=== PATIENT | male | born 1975 | race Caucasian/White ===

== ENCOUNTER 2021-05-31 15:06 | Emergency (ER) | payer MEDICAID, SELFPAY ==
--- NOTE | ~2021-05-31 | XR_ITS ---
EXAMINATION: XR CHEST CLINICAL INFORMATION: Right-sided chest pain COMPARISON: None TECHNIQUE: Portable upright AP view of the chest was obtained. FINDINGS: There is wedge-shaped opacity at the right medial base and coarsening of the bronchovascular markings right infrahilar region. Findings are likely related to airspace opacity. The possibility of superimposed density from a Bochdalek hernia cannot be excluded. Wedge-shaped opacity from infarction may have similar appearance. Clinically correlate. The remainder the lungs are clear. There is no pneumothorax or pleural reaction. No effusion. The costophrenic sulci are well-defined. The heart is normal in size. The vascularity is normal. There is smooth dextrocurvature mid to lower thoracic spine. XR/XR chest 1V IMPRESSION: 1. Right infrahilar airspace opacity. Possible superimposed Bochdalek hernia. Wedge-shaped opacity from infarction may have similar appearance. Clinically correlate. 2. No pneumothorax, pleural reaction, or effusion.
--- NOTE | ~2021-05-31 | CT_ITS ---
EXAMINATION: CT ABDOMEN AND PELVIS WITHOUT CONTRAST CLINICAL INFORMATION: R flank pain . COMPARISON: No pertinent prior studies are available for comparison. TECHNIQUE: Multidetector volumetric imaging was performed from the superior aspect of the liver through the pubic symphysis without contrast per request. Sagittal and coronal reformatted images were obtained on the technologist workstation. This CT examination was performed using dose optimization techniques as appropriate, variously including the following: *Automated exposure control *Adjustment of mA and/or kV according to patient size (this includes techniques or standardized protocols for targeted exams where dose is matched to indication/reason for exam; i.e. extremities or head) *Use of iterative reconstruction technique DLP: 545 mGy-cm. FINDINGS: Images are degraded by patient motion during scanning. LUNG BASES: Right lower lobe consolidation is seen consistent with a right lower lobe pneumonia in the acute setting. No significant effusion or pneumothorax. LIVER, GALLBLADDER, BILIARY TREE: The non-contrast liver is normal in size, shape, and attenuation. No focal hepatic lesion or biliary ductal dilatation is present. The gallbladder is unremarkable with no evidence of radiopaque gallstones, gallbladder wall thickening, or obvious pericholecystic inflammatory changes. PANCREAS: Unremarkable. SPLEEN: Unremarkable. ADRENAL GLANDS: Unremarkable. KIDNEYS AND URETERS: The kidneys are normal in size, shape, and attenuation. No hydronephrosis, hydroureter, or calculi seen. No perinephric stranding. BLADDER: Unremarkable. GASTROINTESTINAL TRACT: Scattered diverticulosis but no obvious diverticulitis. Lack of significant intra-abdominal fat limits evaluation of the bowel but no obvious obstruction seen. ABDOMINAL WALL: No significant hernia is appreciated. LYMPHOVASCULAR STRUCTURES: No lymphadenopathy. The aorta is unremarkable.. PELVIC VISCERA: Unremarkable. OSSEUS STRUCTURES: Unremarkable. CT/CT abdomen pelvis wo con IMPRESSION: Dense consolidation in the posterior aspect of the right lower lobe lobar pneumonia in the acute setting. Evaluation of the abdomen is provided by respiratory motion artifact but no acute intra-abdominal process is seen..
[2021-05-31 15:13] VITALS: BP 110/78; PULSE 90; O2SAT 100
[2021-05-31 15:19] VITALS: BP 123/72; PULSE 91; RESP 18; TEMP 37.6; O2SAT 98; BMI 27.7
--- NOTE | 2021-05-31 16:43 | ED.ABDPAIN ---
HPI - Abdominal Pain General Chief Complaint: Abdominal Pain Stated Complaint: rt flank pain Time Seen by Provider: 05/31/21 16:43 Source: patient and EMS Mode of arrival: EMS Limitations: no limitations History of Present Illness MD elicited complaint: other (R sided posterior rib pain) Pertinent past history: none Onset (ago): day(s) (2) Pain Consistency: constant Location: R flank Severity: moderate Quality: stabbing Radiation: none Migration to: no migration Exacerbating factors: movement and other (breathing) Relieving factors: nothing Associated symptoms: chills, hematuria and other Related Data Previous Rx's Medication Instructions Recorded amoxicillin 500 mg PO TID 10 Days #30 cap 05/31/21 doxycycline hyclate 100 mg PO BID 7 Days #14 cap 05/31/21 Allergies Allergy/AdvReac Type Severity Reaction Status Date / Time No Known Allergies Allergy Unverified 07/30/20 16:39 [No Known Allergies*] Review of Systems Review of Systems Constitutional : No Fever, No Chills ENT/Mouth : No sore throat Eyes: No Eye Pain, No Swelling, No Redness Cardiovascular : No Chest Pain, No SOB Respiratory : pos Cough, No Sputum, No Wheezing Gastrointestinal : no Nausea, no Vomiting, No Diarrhea, no abdominal pain Genitourinary : no Dysuria, no urinary frequency, positive Hematuria, positive Flank Pain, no hesitancy Musculoskeletal : No joint pain, No Myalgias Skin : No Skin Lesions, No rash Neuro : No Weakness, No Numbness, No Headache Psych : No Anxiety/Panic, No Depression Heme/Lymph: No Bruising, No Lymphadenopathy Endocrine : No Polyuria, No Polydipsia All other systems reviewed and are negative Physical Exam Vital Signs: Vital Signs: Last Vital Signs Temp 99.6 F 05/31/21 15:19 Pulse 95 05/31/21 17:18 Resp 16 05/31/21 17:18 BP 111/66 05/31/21 17:18 Pulse Ox 97 05/31/21 17:18 Body Mass Index 27.7 Appearance: Alert. Oriented X3. No acute distress. Anxious Eyes: Pupils equal, round and reactive to light. ENT: Pharynx normal. Neck: Normal inspection. Neck supple. CVS: Normal heart rate and rhythm. Pulses normal. Respiratory: No respiratory distress. Breath sounds decreased R lower base Back: ttp in R posterior rib area no crepitus noted no trauma seen Abdomen: Soft and nontender. Skin: Skin warm and dry. Normal skin color. Normal skin turgor. Extremities: No lower extremity edema. No calf ttp Neuro: Oriented X 3. No motor deficit. No sensory deficit. Course Course Course Narrative: DELAY IN CARE DUE TO PATIENT INITIALLY REFUSING IV LINE DUE TO FEAR OF NEEDLES, HE WAS GIVEN 2MG PO ATIVAN TO HELP, HE IS STILL THREATENING TO LEAVE AMA AT THIS TIME DESPITE CONCERNS FOR PNEUMONIA OR PE / PULMONARY INFARCT, HE IS ASKING FOR ANESTHESIA FOR IV ACCESS WHICH IS NOT CLINICALLY INDICATED NOR IS IT SAFE. THE RISKS OF ASPIRATION SINCE HE JUST ATE, THE SIDE EFFECTS OF THE MEDICATIONS ARE TOO HIGH FOR US TO JUST OBTAIN IV ACCESS WELL THESE MEDICATIONS REQUIRE AN IV TO SEDATE HIM. HE IS AWARE HIS PARTNER IS AT BEDSIDE HE REFUSES ACCESS, HE IS ALERT AND ORIENTED X 3, ANSWERING QUESTIONS APPROPRIATELY - STATES HE DOESN'T CARE AND WANTS TO LEAVE MDM - Abdominal Pain MDM Narrative Medical decision making narrative: 45 yo male with no known sig PMH snorts heroin adamantly denies IV drug use due to fear of needles - comes in with atraumatic R rib pain worse with breathing mild cough, dark urine, at this time will obtain labs, CT scan for renal colic, CXR for pneumonia given diminished R lung base, labs, cultures, UA, dispo per results and findings. Discharge Plan Discharge Clinical Impression: Pneumonia Qualifiers: Pneumonia type: due to unspecified organism Laterality: right Lung location: lower lobe of lung Qualified Code(s): J18.9 - Pneumonia, unspecified organism Patient Disposition: Left Against Medical Advice Instructions: Against Medical Advice (ED), Pneumonia (ED) Additional Instructions: return to ED for any worsening symptoms or concerns YOU CAN COME BACK AT ANY TIME THERE IS CONCERN FOR LUNG INFECTION BUT ALSO POSSIBLE BLOOD CLOT OR SOMETHING CAUSING LACK OF BLOOD FLOW TO THE LUNG Prescriptions: New doxycycline hyclate 100 mg capsule 100 mg PO BID 7 Days Qty: 14 RF: 0 amoxicillin 500 mg capsule 500 mg PO TID 10 Days Qty: 30 RF: 0 PMFSH Past Medical History Attestation statement: The following information was validated with the patient. Medical History Substance abuse Social History Social History (Updated 05/31/21 @ 17:40 by Ramona Cruz DO) Patient Tobacco Use Status: Current everyday Tobacco user Use of substances other than those prescribed or required for medical reasons: No
--- NOTE | 2021-05-31 17:14 | PC.NURSE ---
unable to obtain labs or Iv access r/t pts anxiety, uncooperative with care. Plan to medicate and re attempt
[2021-05-31] MEDS: LORazepam 1 MG TABLET 2 MG PO (17:17)
[2021-05-31 17:18] VITALS: BP 111/66; PULSE 95; RESP 16; O2SAT 97
--- NOTE | 2021-05-31 17:25 | PC.NURSE ---
Dr. Cruz and this RN at bedside to encourage pt for Iv, labs, CT- pt very anxious, stating I'm gonna leave, I'm gonna go, I'm not doing this . Pt encouraged to stay, explains risks and benefits of leaving AMA. Given Po ativan to refuse pt anxiety
== END 2021-05-31 17:50 | disposition left against medical advice (07) ==
LOC: HO.ED 17:43
PROVIDERS: Emergency Provider Emergency Medicine; PCP Internal Medicine
DX: J18.9 Pneumonia, unspecified organism (principal); R10.9 Unspecified abdominal pain
CPT/HCPCS: 71045; 74176; 96360; 99284

== ENCOUNTER 2021-06-08 04:59 | Emergency (ER) | payer MEDICAID, SELFPAY ==
--- NOTE | 2021-06-08 06:01 | PC.NURSE ---
pt signed in while family member visiting for a couple minutes and left with that family member immediately when that family left.
== END 2021-06-08 06:01 | disposition left against medical advice (07) ==
PROVIDERS: Emergency Provider Emergency Medicine
DX: J18.9 Pneumonia, unspecified organism (principal)

== ENCOUNTER 2021-07-03 03:30 | Emergency (ER) | payer OTHER, SELFPAY ==
--- NOTE | ~2021-07-03 | US_ITS ---
EXAMINATION: US PELVIS CLINICAL INFORMATION: Right pelvic pain. History of ovarian cyst. COMPARISON: None TECHNIQUE: Ultrasound of the pelvis is performed using both transabdominal and transvaginal transducers along with Doppler. Transvaginal imaging is performed due to inadequate visualization transabdominally. FINDINGS: Uterus: The uterus is anteverted and measures 8.4 x 4.5 x 6.4 cm. The double wall endometrial thickness is 10 mm. There is a 2 mm anechoic structure within the anterior endometrium near the endomyometrial junction. This is nonspecific and of doubtful clinical significance. Theoretically, could represent a focus of adenomyosis, or transient endometrial cyst/tiny fluid collection. The uterus is smooth in contour and has normal myometrial echogenicity. No visible fibroid. Adnexa: Both ovaries are visualized. There is normal qualitative color flow to the adnexa. There is no pelvic ascites or fluid collection. Right ovary measures 3.7 x 2.2 x 2.1 cm. Physiologic follicles present with dominant follicle measuring 1.9 cm Left ovary measures 2.9 x 1.7 x 2.0 cm. Physiologic follicles present. US/US pelvic and transvaginal IMPRESSION: No etiology for the patient's pelvic pain is identified. Please note that spectral analysis was not performed to exclude ovarian torsion.
[2021-07-03 03:34] VITALS: BP 142/98; PULSE 98; O2SAT 97; BMI 34.9
--- NOTE | 2021-07-03 05:25 | ED_ITS ---
HPI - Abdominal Pain General Chief Complaint: Abdominal Pain <Perez Mary MD - Last Filed: 07/03/21 06:53> Stated Complaint: pelvic pain <Perez Mary MD - Last Filed: 07/03/21 06:53> Time Seen by Provider: 07/03/21 05:24 <Perez Mary MD - Last Filed: 07/03/21 06:53> Source: patient <Perez Mary MD - Last Filed: 07/03/21 06:53> Mode of arrival: ambulatory <Perez Mary MD - Last Filed: 07/03/21 06:53> Limitations: no limitations <Perez Mary MD - Last Filed: 07/03/21 06:53> History of Present Illness HPI narrative: patient with a history of ovarian cysts, she gets them off and on. Now with right sided abdominal pain. Told her cysts were the size of a golf ball. No vaginal discharge. No history of STD's. Patient had pain so decided to come to the ED <Perez Mary MD - Last Filed: 07/03/21 06:53> MD elicited complaint: abdominal pain <Perez Mary MD - Last Filed: 07/03/21 06:53> Pertinent past history: other (ovarian cyst) <Perez Mary MD - Last Filed: 07/03/21 06:53> Onset (ago): day(s) <Perez Mary MD - Last Filed: 07/03/21 06:53> Pain Consistency: intermittent <Perez Mary MD - Last Filed: 07/03/21 06:53> Location: RLQ <Perez Mary MD - Last Filed: 07/03/21 06:53> Severity: mild <Perez Mary MD - Last Filed: 07/03/21 06:53> Associated symptoms: denies other symptoms <Perez Mary MD - Last Filed: 07/03/21 06:53> Related Data Home Medications: Previous Rx's Medication Instructions Recorded amoxicillin 500 mg capsule 500 mg PO TID 10 Days #30 cap 05/31/21 doxycycline hyclate 100 mg capsule 100 mg PO BID 7 Days #14 cap 05/31/21 nitrofurantoin 100 mg PO Q12H 5 Days #10 cap 07/03/21 monohydrate/macrocrystals 100 mg capsule (Macrobid) <Perez Mary MD - Last Filed: 07/03/21 06:53> Allergies/Adverse Reactions: Allergies Allergy/AdvReac Type Severity Reaction Status Date / Time No Known Allergies Allergy Unverified 07/30/20 16:39 [No Known Allergies*] <Perez Mary MD - Last Filed: 07/03/21 06:53> Review of Systems Constitutional: Reports no additional constitutional complaints <Perez Mary MD - Last Filed: 07/03/21 06:53> Eyes: Reports no additional eye complaints <Perez Mary MD - Last Filed: 07/03/21 06:53> Denies dizziness <Perez Mary MD - Last Filed: 07/03/21 06:53> Cardiovascular: Reports no additional cardiovascular complaints <Perez Mary MD - Last Filed: 07/03/21 06:53> Respiratory: Reports as per HPI <Perez Mary MD - Last Filed: 07/03/21 06:53> Gastrointestinal: Reports no additional gastrointestinal complaints <Perez Mary MD - Last Filed: 07/03/21 06:53> Genitourinary: Reports no additional female genitourinary complaints <Perez Mary MD - Last Filed: 07/03/21 06:53> Musculoskeletal: Reports no additional musculoskeletal complaints <Perez Mary MD - Last Filed: 07/03/21 06:53> Skin/Breast: Denies rash <Perez Mary MD - Last Filed: 07/03/21 06:53> Reports system reviewed and no additional complaints, except as documented, Denies dizziness and Denies Sensory deficit (Neuro) <Perez Mary MD - Last Filed: 07/03/21 06:53> Psychiatric: Denies anxiety <Perez Mary MD - Last Filed: 07/03/21 06:53> Physical Exam Vital Signs: Vital Signs: Last Vital Signs Pulse 78 07/03/21 05:56 Resp 16 07/03/21 05:56 BP 128/76 07/03/21 05:56 Pulse Ox 95 08/21/21 05:56 Body Mass Index 34.9 <Perez Mary MD - Last Filed: 07/03/21 06:53> Vital Signs: Last Vital Signs Pulse 78 07/03/21 05:56 Resp 16 07/03/21 05:56 BP 128/76 07/03/21 05:56 Pulse Ox 95 07/03/21 05:56 Body Mass Index 34.9 <Nikko Weinstein MD - Last Filed: 07/03/21 14:29> Const: General: healthy appearing <Perez Mary MD - Last Filed: 07/03/21 06:53> Nutritional Appearance: average body habitus <Perez Mary MD - Last Filed: 07/03/21 06:53> Orientation/consciousness: oriented to person and patient oriented x3 <Perez Mary MD - Last Filed: 07/03/21 06:53> Limitations: no limitations <Perez Mary MD - Last Filed: 07/03/21 06:53> HENMT: Head: Yes normal to inspection <Perez Mary MD - Last Filed: 07/03/21 06:53> Ears: external ears normal <Perez Mary MD - Last Filed: 07/03/21 06:53> General nose exam: Normal external nose present <Perez Mary MD - Last Filed: 07/03/21 06:53> Mouth: Normal oral and palatal mucosa present and oropharynx normal <Perez Mary MD - Last Filed: 07/03/21 06:53> Throat: Yes posterior oropharynx normal <Perez Mary MD - Last Filed: 07/03/21 06:53> Eyes: General: appearance normal, both eyes and all related structures <Perez Mary MD - Last Filed: 07/03/21 06:53> Neck: Other: supple <Perez Mary MD - Last Filed: 07/03/21 06:53> Neck: Yes normal visual inspection <Perez Mary MD - Last Filed: 07/03/21 06:53> Chest: Chest palpation & inspection: normal inspection of the chest <Perez Mary MD - Last Filed: 07/03/21 06:53> Resp: Auscultation: clear to auscultation bilaterally <Perez Mary MD - Last Filed: 07/03/21 06:53> Cardio: Jugular venous distension: no JVD <Perez Mary MD - Last Filed: 07/03/21 06:53> Rate: regular rate <Perez Mary MD - Last Filed: 07/03/21 06:53> Rhythm: regular rhythm <Perez Mary MD - Last Filed: 07/03/21 06:53> Heart sounds: S1 normal heart sound present and S2 normal heart sound present <Perez Mary MD - Last Filed: 07/03/21 06:53> GI: Inspection: Yes normal to inspection <Perez Mary MD - Last Filed: 07/03/21 06:53> Palpation (GI): Soft to palpation, nontender and No hepatosplenomegaly present <Perez Mary MD - Last Filed: 07/03/21 06:53> Auscultation: normal bowel sounds <Perez Mary MD - Last Filed: 07/03/21 06:53> : General: Yes no CVA tenderness <Perez Mary MD - Last Filed: 07/03/21 06:53> Back/Spine/Pelvis: Back: no CVA tenderness <Perez Mary MD - Last Filed: 07/03/21 06:53> Skin: General skin exam: no rashes or lesions noted <Perez Mary MD - Last Filed: 07/03/21 06:53> Neuro: General: oriented to person and patient oriented x3 <Perez Mary MD - Last Filed: 07/03/21 06:53> Cranial nerves: Yes CN's II-XII intact bilaterally <Perez Mayr MD - Last Filed: 07/03/21 06:53> Motor exam (neuro): 5/5 motor strength present throughout <Perez Mary MD - Last Filed: 07/03/21 06:53> Sensory Exam: No Sensory deficit (Neuro) <Perez Mary MD - Last Filed: 07/03/21 06:53> Extrem: General: Yes normal to inspection <Perez Mary MD - Last Filed: 07/03/21 06:53> Psych: Appearance: grossly normal <Perez Mary MD - Last Filed: 07/03/21 06:53> Course Reevaluation(s) Reevaluation #1: patient concerned that she has a large ovarian cyst, UA postive for UTI will treat with macrobid <Perez Mary MD - Last Filed: 07/03/21 06:53> Time: 06:52 <Perez Mary MD - Last Filed: 07/03/21 06:53> MDM - Abdominal Pain Lab Data Result diagrams: : 07/03/21 05:51 07/03/21 05:51 <Perez Mary MD - Last Filed: 07/03/21 06:53> Labs: Lab Results 07/03/21 07/03/21 07/03/21 Range/Units 05:51 05:51 06:16 WBC 10.3 (4.8-10.8) X10*3/uL RBC 4.61 (4.20-5.50) X10*6/uL Hgb 13.3 (12.0-16.0) g/dl Hct 39.3 (37-47) % MCV 85.2 (80-98) fL MCH 28.9 (27.0-33.0) pg MCHC 33.8 (31.0-35.0) g/dl RDW 13.9 (11.0-16.0) % Plt Count 227 (160-400) X10*3/uL MPV 11.1 (9.4-12.3) fL Immature Gran % (Auto) 0.4 (0.0-0.4) % Neut % (Auto) 50.9 (45-73) % Lymph % (Auto) 37.2 (20-40) % [place] % (Auto) 7.7 (2-11) % Eos % (Auto) 3.3 (0-4) % Baso % (Auto) 0.5 (0-2) % Lymph # (Auto) 3.8 (1.2-4.9) X10*3/uL [place] # (Auto) 0.8 (0.1-1.2) X10*3/uL Eos # (Auto) 0.3 (0.0-0.4) X10*3/uL Baso # (Auto) 0.1 (0.0-0.2) X10*3/uL Abs Immat Gran (auto) 0.04 H (0.00-0.03) X10*3/uL Absolute Neuts (auto) 5.3 (2.0-8.3) X10*3/uL Absolute Nucleated RBC 0.000 (0.0-0.012) X10*3/uL Nucleated RBC % (auto) 0.0 (0.0-0.2) /100WBC Sodium 141 (135-145) mmol/L Potassium 4.2 (3.3-5.1) mmol/L Chloride 108 (96-108) mmol/L Carbon Dioxide 26 (22-29) mmol/L Anion Gap 11 L (12-20) BUN 11 (9-16) mg/dL Creatinine 0.70 (0.5-1.4) mg/dL Estim Creat Clear Calc 116.5 Estimated GFR > 60 Random Glucose 88 (60-115) mg/dL Calcium 9.5 (8.4-10.2) mg/dL Urine Color YELLOW Urine Appearance CLEAR Urine pH 6.0 (5.0-8.0) Ur Specific [place] 1.025 (1.005-1.025) Urine Protein NEG (NEG-TRACE) MG/DL Urine Glucose (UA) NEG (NEG) MG/DL Urine Ketones NEG (NEG) MG/DL Urine Blood NEG (NEG) Urine Nitrite NEG (NEG) Ur Leukocyte Esterase 1+ H (NEG) Urine RBC 0-2 (0) /HPF Urine WBC 15-29 H (0-4) /HPF Ur Squamous Epith Cells 2+ /LPF Urine Bacteria 1+ /LPF Urine Test (NEGATIVE) 07/03/21 Range/Units 06:16 WBC (4.8-10.8) X10*3/uL RBC (4.20-5.50) X10*6/uL Hgb (12.0-16.0) g/dl Hct (37-47) % MCV (80-98) fL MCH (27.0-33.0) pg MCHC (31.0-35.0) g/dl RDW (11.0-16.0) % Plt Count (160-400) X10*3/uL MPV (9.4-12.3) fL Immature Gran % (Auto) (0.0-0.4) % Neut % (Auto) (45-73) % Lymph % (Auto) (20-40) % [place] % (Auto) (2-11) % Eos % (Auto) (0-4) % Baso % (Auto) (0-2) % Lymph # (Auto) (1.2-4.9) X10*3/uL [place] # (Auto) (0.1-1.2) X10*3/uL Eos # (Auto) (0.0-0.4) X10*3/uL Baso # (Auto) (0.0-0.2) X10*3/uL Abs Immat Gran (auto) (0.00-0.03) X10*3/uL Absolute Neuts (auto) (2.0-8.3) X10*3/uL Absolute Nucleated RBC (0.0-0.012) X10*3/uL Nucleated RBC % (auto) (0.0-0.2) /100WBC Sodium (135-145) mmol/L Potassium (3.3-5.1) mmol/L Chloride (96-108) mmol/L Carbon Dioxide (22-29) mmol/L Anion Gap (12-20) BUN (9-16) mg/dL Creatinine (0.5-1.4) mg/dL Estim Creat Clear Calc Estimated GFR Random Glucose (60-115) mg/dL Calcium (8.4-10.2) mg/dL Urine Color Urine Appearance Urine pH (5.0-8.0) Ur Specific [place] (1.005-1.025) Urine Protein (NEG-TRACE) MG/DL Urine Glucose (UA) (NEG) MG/DL Urine Ketones (NEG) MG/DL Urine Blood (NEG) Urine Nitrite (NEG) Ur Leukocyte Esterase (NEG) Urine RBC (0) /HPF Urine WBC (0-4) /HPF Ur Squamous Epith Cells /LPF Urine Bacteria /LPF Urine Test NEGATIVE (NEGATIVE) <Perez Mary MD - Last Filed: 07/03/21 06:53> Lab Results 07/03/21 07/03/21 07/03/21 Range/Units 05:51 05:51 06:16 WBC 10.3 (4.8-10.8) X10*3/uL RBC 4.61 (4.20-5.50) X10*6/uL Hgb 13.3 (12.0-16.0) g/dl Hct 39.3 (37-47) % MCV 85.2 (80-98) fL MCH 28.9 (27.0-33.0) pg MCHC 33.8 (31.0-35.0) g/dl RDW 13.9 (11.0-16.0) % Plt Count 227 (160-400) X10*3/uL MPV 11.1 (9.4-12.3) fL Immature Gran % (Auto) 0.4 (0.0-0.4) % Neut % (Auto) 50.9 (45-73) % Lymph % (Auto) 37.2 (20-40) % [place] % (Auto) 7.7 (2-11) % Eos % (Auto) 3.3 (0-4) % Baso % (Auto) 0.5 (0-2) % Lymph # (Auto) 3.8 (1.2-4.9) X10*3/uL [place] # (Auto) 0.8 (0.1-1.2) X10*3/uL Eos # (Auto) 0.3 (0.0-0.4) X10*3/uL Baso # (Auto) 0.1 (0.0-0.2) X10*3/uL Abs Immat Gran (auto) 0.04 H (0.00-0.03) X10*3/uL Absolute Neuts (auto) 5.3 (2.0-8.3) X10*3/uL Absolute Nucleated RBC 0.000 (0.0-0.012) X10*3/uL Nucleated RBC % (auto) 0.0 (0.0-0.2) /100WBC Sodium 141 (135-145) mmol/L Potassium 4.2 (3.3-5.1) mmol/L Chloride 108 (96-108) mmol/L Carbon Dioxide 26 (22-29) mmol/L Anion Gap 11 L (12-20) BUN 11 (9-16) mg/dL Creatinine 0.70 (0.5-1.4) mg/dL Estim Creat Clear Calc 116.5 Estimated GFR > 60 Random Glucose 88 (60-115) mg/dL Calcium 9.5 (8.4-10.2) mg/dL Urine Color YELLOW Urine Appearance CLEAR Urine pH 6.0 (5.0-8.0) Ur Specific [place] 1.025 (1.005-1.025) Urine Protein NEG (NEG-TRACE) MG/DL Urine Glucose (UA) NEG (NEG) MG/DL Urine Ketones NEG (NEG) MG/DL Urine Blood NEG (NEG) Urine Nitrite NEG (NEG) Ur Leukocyte Esterase 1+ H (NEG) Urine RBC 0-2 (0) /HPF Urine WBC 15-29 H (0-4) /HPF Ur Squamous Epith Cells 2+ /LPF Urine Bacteria 1+ /LPF Urine Test (NEGATIVE) 07/03/21 Range/Units 06:16 WBC (4.8-10.8) X10*3/uL RBC (4.20-5.50) X10*6/uL Hgb (12.0-16.0) g/dl Hct (37-47) % MCV (80-98) fL MCH (27.0-33.0) pg MCHC (31.0-35.0) g/dl RDW (11.0-16.0) % Plt Count (160-400) X10*3/uL MPV (9.4-12.3) fL Immature Gran % (Auto) (0.0-0.4) % Neut % (Auto) (45-73) % Lymph % (Auto) (20-40) % [place] % (Auto) (2-11) % Eos % (Auto) (0-4) % Baso % (Auto) (0-2) % Lymph # (Auto) (1.2-4.9) X10*3/uL [place] # (Auto) (0.1-1.2) X10*3/uL Eos # (Auto) (0.0-0.4) X10*3/uL Baso # (Auto) (0.0-0.2) X10*3/uL Abs Immat Gran (auto) (0.00-0.03) X10*3/uL Absolute Neuts (auto) (2.0-8.3) X10*3/uL Absolute Nucleated RBC (0.0-0.012) X10*3/uL Nucleated RBC % (auto) (0.0-0.2) /100WBC Sodium (135-145) mmol/L Potassium (3.3-5.1) mmol/L Chloride (96-108) mmol/L Carbon Dioxide (22-29) mmol/L Anion Gap (12-20) BUN (9-16) mg/dL Creatinine (0.5-1.4) mg/dL Estim Creat Clear Calc Estimated GFR Random Glucose (60-115) mg/dL Calcium (8.4-10.2) mg/dL Urine Color Urine Appearance Urine pH (5.0-8.0) Ur Specific [place] (1.005-1.025) Urine Protein (NEG-TRACE) MG/DL Urine Glucose (UA) (NEG) MG/DL Urine Ketones (NEG) MG/DL Urine Blood (NEG) Urine Nitrite (NEG) Ur Leukocyte Esterase (NEG) Urine RBC (0) /HPF Urine WBC (0-4) /HPF Ur Squamous Epith Cells /LPF Urine Bacteria /LPF Urine Test NEGATIVE (NEGATIVE) <Nikko Weinstein MD - Last Filed: 07/03/21 14:29> Discharge Plan Discharge Clinical Impression: UTI (urinary tract infection) Qualifiers: Urinary tract infection type: acute cystitis Hematuria presence: without hematuria Qualified Code(s): N30.00 - Acute cystitis without hematuria <Perez Mary MD - Last Filed: 07/03/21 06:53> Patient Disposition: Home, Self-Care <Perez Mary MD - Last Filed: 07/03/21 06:53> Instructions: Urinary Tract Infection in Women (ED) <Perez Mary MD - Last Filed: 07/03/21 06:53> Additional Instructions: Drink plenty of fluids take antibiotics for infection. Ultrasound of pelvis is negative for any ovarian cyst <Perez Mary MD - Last Filed: 07/03/21 06:53> Prescriptions: New nitrofurantoin monohyd/m-cryst [Macrobid] 100 mg capsule 100 mg PO Q12H 5 Days Qty: 10 RF: 0 No Action doxycycline hyclate 100 mg capsule 100 mg PO BID 7 Days Qty: 14 RF: 0 amoxicillin 500 mg capsule 500 mg PO TID 10 Days Qty: 30 RF: 0 <Perez Mary MD - Last Filed: 07/03/21 06:53> Interventions: ED Discharge Assessment Last Done: 07/03/21 10:42 <Perez Mary MD - Last Filed: 07/03/21 06:53> Discharge Date/Time: 07/03/21 10:42 <Perez Mary MD - Last Filed: 07/03/21 06:53> [facility] Past Medical History Medical History: Medical History Substance abuse <Perez Mary MD - Last Filed: 07/03/21 06:53> Social History Social History: Social History Patient Tobacco Use Status: Current everyday Tobacco user Advance Directives: No Advance Directives Information Provided: Yes <Perez Mary MD - Last Filed: 07/03/21 06:53>
[2021-07-03 05:56] VITALS: BP 128/76; PULSE 78; RESP 16; O2SAT 95
[2021-07-03 05:56] LABS: Basophils Absolute Auto 0.1 X10*3/uL (0.0-0.2); Basophils Percent Auto 0.5 % (0-2); Eosinophils Absolute Auto 0.3 X10*3/uL (0.0-0.4); Eosinophils Percent Auto 3.3 % (0-4); Hematocrit 39.3 % (37-47); Hemoglobin 13.3 g/dl (12.0-16.0); Imm Gran Abs Auto 0.04 X10*3/uL (0.00-0.03); Imm Gran Pct Auto 0.4 % (0.0-0.4); Lymphocytes Absolute Auto 3.8 X10*3/uL (1.2-4.9); Lymphocytes Percent Auto 37.2 % (20-40); MANUAL DIFF FLAG NO; Mean Corpuscular HGB Conc 33.8 g/dl (31.0-35.0); Mean Corpuscular Hemoglobin 28.9 pg (27.0-33.0); Mean Corpuscular Volume 85.2 fL (80-98); Mean Platelet Volume 11.1 fL (9.4-12.3); Monocytes Absolute Auto 0.8 X10*3/uL (0.1-1.2); Monocytes Percent Auto 7.7 % (2-11); Neutrophils Absolute Auto 5.3 X10*3/uL (2.0-8.3); Neutrophils Percent Auto 50.9 % (45-73); Platelet Count 227 X10*3/uL (160-400); Red Blood Count 4.61 X10*6/uL (4.20-5.50); Red Cell Distribution Width 13.9 % (11.0-16.0); White Blood Count 10.3 X10*3/uL (4.8-10.8)
[2021-07-03] MEDS: Ketorolac Tromethamine 60 MG/2 ML VIAL IM (05:58)
[2021-07-03 06:21] LABS: Glucose Urine UA NEG (NEG); Leukocyte Esterase Urine 1+ (NEG); Nitrite Urine NEG (NEG); Specific Gravity - Urine 1.025 (1.005-1.025); UACC Culture Trigger YES; Urine Blood NEG (NEG); Urine Ketones NEG (NEG); Urine Protein NEG (NEG-TRACE)
[2021-07-03 06:22] LABS: Appearance Urine CLEAR; Color Urine YELLOW
[2021-07-03 06:23] LABS: Anion Gap 11 (12-20); Blood Urea Nitrogen 11 mg/dL (9-16); Calcium 9.5 mg/dL (8.4-10.2); Carbon Dioxide 26 mmol/L (22-29); Chloride 108 mmol/L (96-108); Creatinine Clr Calc Pharmacy 116.5; Estimated Glomerular Filt Rate > 60; Glucose Random 88 mg/dL (60-115); Potassium 4.2 mmol/L (3.3-5.1); Sodium 141 mmol/L (135-145)
[2021-07-03 06:23] LABS: UPreg QC Valid YES; Urine Pregnancy NEGATIVE (NEGATIVE)
[2021-07-03 06:40] LABS: Bacteria Urine 1+ /LPF; RBC Urine 0-2 /HPF (0); Squamous Epithelial Cell Urine 2+ /LPF
[2021-07-03] MEDS: Nitrofurantoin Monohyd/M-Cryst 100 MG CAPSULE PO (07:02)
== END 2021-07-03 10:42 | disposition home or self-care (01) ==
PROVIDERS: Emergency Provider Emergency Medicine; PCP Internal Medicine
DX: N30.00 Acute cystitis without hematuria (principal); R10.2 Pelvic and perineal pain; F19.10 Other psychoactive substance abuse, uncomplicated
CPT/HCPCS: 36415; 76830; 76856; 80048; 81001; 81025; 85025; 87086; 96372; 99284; J1885